=== PATIENT | female | born 2000 | race Caucasian/White ===

== ENCOUNTER 2022-06-18 11:01 | Emergency (ER) | payer OTHER, SELFPAY ==
[2022-06-18] VITALS (9 sets, daily range): BP systolic 105–120; BP diastolic 58–69; PULSE 78–111; RESP 14–29; TEMP 38.1; O2SAT 97–99; BMI 21.0
--- NOTE | 2022-06-18 11:29 | DI.RAD.S_ITS ---
PROCEDURE: XR CHEST 2V INDICATIONS: cough, fever, chest pain TECHNIQUE: 2 views of the chest were acquired. COMPARISON: None. FINDINGS: Surgical changes and devices: None. Lungs and pleura: Lungs are clear. No pleural effusions or pneumothorax. Mediastinum: Mediastinal contours are normal. Heart size is normal. Bones and chest wall: No suspicious bony abnormalities. Soft tissues appear unremarkable. IMPRESSION: Normal two view chest x-ray Approved by: Geoff Rascon M.D. on 06/18/2022 at 11:59
[2022-06-18] MEDS: ACETAMINOPHEN 325 MG TABLET 975 MG PO (11:33)
[2022-06-18] MEDS: ONDANSETRON 4 MG ODT PO (11:33)
[2022-06-18 12:21] LABS: Influenza A - CEPHEID Flu A POSITIVE (NEGATIVE); Influenza B - CEPHEID Flu B NEGATIVE (NEGATIVE); Respiratory Syncytial Virus Negative (Negative)
[2022-06-18 12:36] LABS: Bacteria Urine Occasional (0-1); Culture Indicated Urine Specimen Cultured; RBC Urine None Seen (0-5/HPF); Squamous Epithelial Cell Urine 5-10 /HPF (0-5/HPF); WBC Urine 1-5/HPF (0-5/HPF)
[2022-06-18 12:39] LABS: COVID-19 CEPHEID 4-PLEX PCR Negative (Negative)
--- NOTE | 2022-06-18 13:46 | ED_ITS ---
HPI - URI/Sore Throat <JOHNY Padilla - Last Filed: 06/18/22 17:14> General Chief Complaint: Upper Respiratory Symptoms Stated Complaint: fever, cough,chest pain Time Seen by Provider: 06/18/22 11:49 Source: patient Mode of arrival: Ambulatory History of Present Illness HPI Narrative: This is a 21-year-old female presents to the emergency department with fever, cough, chest pain, nausea and states that her symptoms started last night. She denies vomiting, diarrhea, flank pain, weakness, lightheadedness or dizziness. She endorses sinus congestion, sore throat, muscle aches and frequent cough. She endorses having history of asthma but denies needing an inhaler. She denies shortness of breath, chest pain, wheezing, or difficulty breathing. Related Data Previous Rx's Medication Instructions Recorded benzocaine 15 mg-menthol 3.6 mg 1 rikki mucous membrane Q2-4H PRN 06/18/22 lozenges (Cepacol Sore Throat sore throat #16 ea (benzocaine-menthol)) cetirizine 10 mg tablet 10 mg PO BEDTIME congestion #20 06/18/22 tabs ibuprofen 600 mg tablet 600 mg PO Q8H PRN fever or pain 06/18/22 #20 tabs Allergies Allergy/AdvReac Type Severity Reaction Status Date / Time Penicillins Allergy Severe Hives Verified 06/18/22 11:28 Review of Systems <JOHNY Padilla - Last Filed: 06/18/22 17:14> Review of Systems Narrative: Review of systems is negative for acute abnormalities unless otherwise noted in HPI Patient History <JOHNY Padilla - Last Filed: 06/18/22 17:14> alcohol intake frequency: holidays/special occasions only Substance Use Type: marijuana Exam <JOHNY Padilla - Last Filed: 06/18/22 17:14> Narrative Exam Narrative: Independently reviewed vital signs and nursing notes. General: Awake, alert, nontoxic, no cardiorespiratory distress, febrile Head/Neck: Atraumatic, neck full range of motion, no cervical lymphadenopathy, posterior pharynx with erythema, congestion is present, without sinus tenderness, mild conjunctival injection bilaterally, external ears are normal mild rhinorrhea Cardio: Regular rate and rhythm, no peripheral edema Respiratory: CTAB unlabored without wheezing, stridor, or rales. No retractions. MSK: Moves all extremities, neurovascularly intact Skin: Normal capillary refill, no rash Neuro: Normal speech and cognition, normal gait Initial Vital Signs Initial Vital Signs: Vital Signs Temperature 100.5 F H 06/18/22 11:24 Pulse Rate 111 H 06/18/22 11:24 Respiratory Rate 14 06/18/22 11:24 Blood Pressure 117/69 06/18/22 11:24 Pulse Oximetry 99 06/18/22 11:24 Oxygen Delivery Method 06/18/22 11:24 <Annmarie Scott DO - Last Filed: 07/01/22 11:12> Initial Vital Signs Initial Vital Signs: Vital Signs Temperature 100.5 F H 06/18/22 11:24 Pulse Rate 111 H 06/18/22 11:24 Respiratory Rate 14 06/18/22 11:24 Blood Pressure 117/69 06/18/22 11:24 Pulse Oximetry 99 06/18/22 11:24 Oxygen Delivery Method 06/18/22 11:24 Course <JOHNY Padilla - Last Filed: 06/18/22 17:14> Orders Ordered: Discontinued Medications Acetaminophen (Acetaminophen 325 Mg Tablet) 975 mg PO NOW ONE Stop: 06/18/22 11:30 Last Admin: 06/18/22 11:33 Dose: 975 mg Documented By: SANTHOSH Dexamethasone (Dexamethasone 10 Mg/Ml Vial) 10 mg PO NOW ONE Stop: 06/18/22 13:46 Last Admin: 06/18/22 14:09 Dose: 10 mg Documented By: CIARA Ketorolac Tromethamine (Ketorolac 30 Mg/Ml Vial) 15 mg IM NOW ONE Stop: 06/18/22 13:46 Last Admin: 06/18/22 14:10 Dose: 15 mg Documented By: CIARA Ondansetron HCl (Ondansetron 4 Mg Odt) 4 mg PO NOW ONE Stop: 06/18/22 11:30 Last Admin: 06/18/22 11:33 Dose: 4 mg Documented By: SANTHOSH Ondansetron HCl (Ondansetron 4 Mg Odt) 4 mg SL NOW ONE Stop: 06/18/22 13:46 Last Admin: 06/18/22 14:09 Dose: Not Given Documented By: CIARA Oseltamivir Phosphate (Oseltamivir 75 Mg Capsule) 75 mg PO NOW ONE Stop: 06/18/22 13:46 Last Admin: 06/18/22 14:09 Dose: 75 mg Documented By: CIARA Vital Signs Vital signs: Vital Signs - 8 hr 06/18/22 11:24 06/18/22 11:33 06/18/22 12:24 Temperature 100.5 F H 100.5 F H Pulse Rate 111 H 92 H Respiratory Rate 14 17 Blood Pressure 117/69 Pulse Oximetry 99 98 Oxygen Delivery Method Room Air 06/18/22 12:25 06/18/22 12:25 06/18/22 12:30 Temperature Pulse Rate 88 Respiratory Rate Blood Pressure 118/61 114/60 Pulse Oximetry 98 Oxygen Delivery Method 06/18/22 12:30 06/18/22 13:00 06/18/22 13:00 Temperature Pulse Rate 82 90 Respiratory Rate 18 24 Blood Pressure 105/58 L Pulse Oximetry 98 98 Oxygen Delivery Method 06/18/22 13:30 06/18/22 13:30 06/18/22 14:08 Temperature Pulse Rate 90 87 Respiratory Rate 22 29 H Blood Pressure 110/58 L Pulse Oximetry 97 98 Oxygen Delivery Method 06/18/22 14:31 Temperature Pulse Rate 78 Respiratory Rate Blood Pressure 120/61 Pulse Oximetry 99 Oxygen Delivery Method Room Air <Annmarie Scott DO - Last Filed: 07/01/22 11:12> Orders Ordered: Discontinued Medications Acetaminophen (Acetaminophen 325 Mg Tablet) 975 mg PO NOW ONE Stop: 06/18/22 11:30 Last Admin: 06/18/22 11:33 Dose: 975 mg Documented By: SANTHOSH Dexamethasone (Dexamethasone 10 Mg/Ml Vial) 10 mg PO NOW ONE Stop: 06/18/22 13:46 Last Admin: 06/18/22 14:09 Dose: 10 mg Documented By: CIARA Ketorolac Tromethamine (Ketorolac 30 Mg/Ml Vial) 15 mg IM NOW ONE Stop: 06/18/22 13:46 Last Admin: 06/18/22 14:10 Dose: 15 mg Documented By: CIARA Ondansetron HCl (Ondansetron 4 Mg Odt) 4 mg PO NOW ONE Stop: 06/18/22 11:30 Last Admin: 06/18/22 11:33 Dose: 4 mg Documented By: KLS Ondansetron HCl (Ondansetron 4 Mg Odt) 4 mg SL NOW ONE Stop: 06/18/22 13:46 Last Admin: 06/18/22 14:09 Dose: Not Given Documented By: CIARA Oseltamivir Phosphate (Oseltamivir 75 Mg Capsule) 75 mg PO NOW ONE Stop: 06/18/22 13:46 Last Admin: 06/18/22 14:09 Dose: 75 mg Documented By: CIARA Vital Signs Vital signs: Vital Signs - 8 hr 06/18/22 11:24 06/18/22 11:33 06/18/22 12:24 Temperature 100.5 F H 100.5 F H Pulse Rate 111 H 92 H Respiratory Rate 14 17 Blood Pressure 117/69 Pulse Oximetry 99 98 Oxygen Delivery Method Room Air 06/18/22 12:25 06/18/22 12:25 06/18/22 12:30 Temperature Pulse Rate 88 Respiratory Rate Blood Pressure 118/61 114/60 Pulse Oximetry 98 Oxygen Delivery Method 06/18/22 12:30 06/18/22 13:00 06/18/22 13:00 Temperature Pulse Rate 82 90 Respiratory Rate 18 24 Blood Pressure 105/58 L Pulse Oximetry 98 98 Oxygen Delivery Method 06/18/22 13:30 06/18/22 13:30 06/18/22 14:08 Temperature Pulse Rate 90 87 Respiratory Rate 22 29 H Blood Pressure 110/58 L Pulse Oximetry 97 98 Oxygen Delivery Method 06/18/22 14:31 Temperature Pulse Rate 78 Respiratory Rate Blood Pressure 120/61 Pulse Oximetry 99 Oxygen Delivery Method Room Air MDM - URI/Sore Throat <Dacia Jensen [facility] - Last Filed: 06/18/22 17:14> Lab Data Labs: Lab Results 06/18/22 06/18/22 Range/Units 11:10 11:36 Urine RBC None seen (0-5/HPF) Urine WBC 1-5/hpf (0-5/HPF) Ur Squamous Epith Cells 5-10 /hpf H (0-5/HPF) Urine Bacteria Occasional (0-1) (None) Ur Culture Indicated? Specimen cultured SARS-CoV-2 (PCR) Negative (Negative) Influenza A (RT-PCR) Flu a positive H (NEGATIVE) Influenza B (RT-PCR) Flu b negative (NEGATIVE) RSV (PCR) Negative (Negative) Point of Care Testing Test Results Negative Urine Dip Bedside Urine Glucose Negative Bedside Urine Bilirubin - Negative Bedside Urine Ketone +++ 80 Urine Specific [place] 1.020 Bedside Urine Occult Blood - Negative Bedside Urine pH 6.5 Bedside Urine Protein - Negative Bedside Urine Urobilinogen - Negative Bedside Urine Nitrite - Negative Imaging Data Chest x-ray: Radiologist's Impression: PROCEDURE:? XR CHEST 2V ? INDICATIONS:? cough, fever, chest pain ? TECHNIQUE:? 2 views of the chest were acquired.? ? COMPARISON:? None. ? FINDINGS:? ? Surgical changes and devices:? None.? ? Lungs and pleura:? Lungs are clear.? No pleural effusions or pneumothorax.? ? Mediastinum:? Mediastinal contours are normal.? Heart size is normal.? ? Bones and chest wall:? No suspicious bony abnormalities.? Soft tissues appear unremarkable.? ? IMPRESSION:? Normal two view chest x-ray ? ? ? Approved by: Geoff Rascon M.D. on 06/18/2022 at 11:59? MDM Narrative Medical decision making narrative: This is a 21-year-old female presents to the emergency department with upper respiratory symptoms that started yesterday including cough, congestion, fever, nausea, and muscle aches. She tested positive for influenza a, chest x-ray does not show any focal opacities concerning for bacterial pneumonia. Exam is witho ut crackles, rales, diminished breath sounds, or wheezing. Patient was initially febrile, was given Tylenol when she came in at 11:30, when I saw her 2 hours later, she was given Toradol, Tamiflu per her request for treatment for flu, and dexamethasone for upper airway congestion. She does not have stridor, without anterior cervical lymphadenopathy, states that she feels winded and is without hypoxia, tachypnea, or respiratory distress. Patient understands to follow-up with her primary care provider as needed, stay hydrated, and return for any worsening of her symptoms or difficulty breathing. Patient is appropriate and amenable to discharge home. Vital signs are stable on repeat examination is unremarkable. Patient has been informed of results. Patient has been given strict return to ER precautions for any new or worsening symptoms. Patient understands to follow up closely with outpatient providers as instructed. Patient understands plan and agrees to discharge home. All que stions and concerns answered at this time. <Annmarie Scott, DO - Last Filed: 07/01/22 11:12> Lab Data Labs: Lab Results 06/18/22 06/18/22 Range/Units 11:10 11:36 Urine RBC None seen (0-5/HPF) Urine WBC 1-5/hpf (0-5/HPF) Ur Squamous Epith Cells 5-10 /hpf H (0-5/HPF) Urine Bacteria Occasional (0-1) (None) Ur Culture Indicated? Specimen cultured SARS-CoV-2 (PCR) Negative (Negative) Influenza A (RT-PCR) Flu a positive H (NEGATIVE) Influenza B (RT-PCR) Flu b negative (NEGATIVE) RSV (PCR) Negative (Negative) Point of Care Testing Test Results Negative Urine Dip Bedside Urine Glucose Negative Bedside Urine Bilirubin - Negative Bedside Urine Ketone +++ 80 Urine Specific [place] 1.020 Bedside Urine Occult Blood - Negative Bedside Urine pH 6.5 Bedside Urine Protein - Negative Bedside Urine Urobilinogen - Negative Bedside Urine Nitrite - Negative Discharge Plan Departure Patient Disposition: Home Clinical Impression: Influenza Instructions: Influenza Activity Restrictions/Additional Instructions: *You have been diagnosed with influenza, your chest x-ray is reassuring that it is not turned bacterial this point. Please practice deep breathing and get up out of bed frequently throughout the day, stay hydrated, check your temperature and treat for fever every 6 hours with Tylenol 650 mg and ibuprofen 600 mg. Please take Zyrtec each night, okay to take 20 mg, and hopefully start feeling better soon. *What to do: *Please continue to take your regular medications as directed. [ x] New medication prescriptions sent to your pharmacy: [ [facility]] [ ] New medication written as a paper prescription [ ] No new medications given *Please follow up with your primary care provider in 2-3 days, call for an appointment. Let them know you were seen in the Emergency Department and that we asked that you be seen for follow-up. We will electronically transmit a record of today's note if your PCP is in our system *If you do not have a primary care provider please contact [phone] to establish care with one of the [facility] primary care providers. *Return to Emergency Department if you should have any new, worsening, or concerning symptoms, such as [fever greater than 101F, chills, worsening pain, persistent vomiting or other bothersome symptoms]. Prescriptions: New cetirizine 10 mg tablet 10 mg PO BEDTIME Qty: 20 0RF Cepacol Sore Throat (shad-men) 15-3.6 mg lozenge 1 rikki mucous membrane Q2-4H PRN (Reason: sore throat) Qty: 16 0RF ibuprofen 600 mg tablet 600 mg PO Q8H PRN (Reason: fever or pain) Qty: 20 0RF Visit Report Forms: Patient Portal/API <Annmarie Scott DO - Last Filed: 07/01/22 11:12> Cosign ED Attending Jewelature Attestation: I was immediately available in the department for consultation. Documentation has been reviewed.
[2022-06-18] MEDS: DEXAMETHASONE 10 MG/ML VIAL PO (14:09)
[2022-06-18] MEDS: OSELTAMIVIR 75 MG CAPSULE PO (14:09)
[2022-06-18] MEDS: KETOROLAC 30 MG/ML VIAL 15 MG IM (14:10)
== END 2022-06-18 14:46 | disposition home or self-care (01) ==
PROVIDERS: Emergency Medicine; Emergency Provider Nurse Practitioner Critical Care Medicine
DX: J10.1 Influenza due to other identified influenza virus with other respiratory manifestations (principal); R07.9 Chest pain, unspecified; Z20.822 Contact with and (suspected) exposure to COVID-19
CPT/HCPCS: 0241U; 71046; 81003; 81015; 81025; 87086; 96372; 99284; J1100; J1885

== ENCOUNTER → 2022-09-30 08:51 | Outpatient (CLI) | payer OTHER, SELFPAY ==
[2022-09-30 09:43] LABS: Influenza A - CEPHEID Flu A NEGATIVE (NEGATIVE); Influenza B - CEPHEID Flu B NEGATIVE (NEGATIVE); Respiratory Syncytial Virus Negative (Negative)
[2022-09-30 09:44] LABS: COVID-19 CEPHEID 4-PLEX PCR Negative (Negative)
== END ==
PROVIDERS: Visit Provider Nurse Practitioner Family
DX: J06.9 Acute upper respiratory infection, unspecified (principal)
CPT/HCPCS: 0241U